=== PATIENT | male | born 1970 | race Caucasian/White ===

== ENCOUNTER 2017-02-20 19:24 | Emergency (ER) | payer SELFPAY ==
[~2017-02-20] VITALS: Ht 185.4 cm; Wt 113.3 kg
[2017-02-20 19:27] VITALS: Ht 185.4 cm; Wt 113.3 kg
--- OUTSIDE RECORDS SUMMARY | 2017-02-20 19:29 | XMS REPORT | Continuity of Care Document ---
Author Author [facility] Organization [facility] Address Unknown Phone Unavailable Allergies Medications Problems Procedures Results Encounters ACCT No. Visit Date/Time Discharge Status Pt. Type Provider Facility Loc./Unit Complaint [id number] 03/19/2014 17:10:46 03/19/2014 23: 59:59 CLS Outpatient Katerin Parada
--- NOTE | 2017-02-20 19:35 | NUR ---
PROVIDER DR JEFF AT BEDSIDE
[2017-02-20] MEDS: ADENOSINE 12mg/4ml INJECTION vl IV ONE (19:40)
--- NOTE | 2017-02-20 19:40 | NUR ---
ADEN[facility]INE CR[employer] [facility]ART AT BEDSIDE, DR JEFF AT BEDSIDE DURING MORTGAGE ADVISOR. O2 PLACED FOR PATIENT COMFORT.
--- OUTSIDE RECORDS SUMMARY | 2017-02-20 19:44 | XMS REPORT | Continuity of Care Document ---
Author Author [facility] Organization [facility] Address Unknown Phone Unavailable Allergies Medications Problems Procedures Results Encounters ACCT No. Visit Date/Time Discharge Status Pt. Type Provider Facility Loc./Unit Complaint [id number] 03/19/2014 17:10:46 03/19/2014 23: 59:59 CLS Outpatient Katerin Parada
--- NOTE | 2017-02-20 19:47 | ERPDOC ---
Departure Disposition Decision Date: February 20, 2017 Disposition Decision Time: 20:40 Disposition: 02 TO [facility] Impression Impression Impression: Primary Impression: Elevated troponin Additional Impression: PSVT (paroxysmal supraventricular tachycardia) Severity: Severe Condition: Improved Seen By: Physician only Problems/Meds/Labs Reviewed?: Yes Medications reviewed and manag: Yes Follow up care ordered?: Yes Mental Status: Alert Critical Care Note Total Time (mins): 45 Critical Care Spent: [id number] care of pt, Reviewing test results, Discuss the case w/staff, Documenting the MR, Discussion w/ family/DPOA During this visit the pt was: Critically Ill, At Risk of Deterioration HPI - Cardiac General Stated Complaint: HEART RACING Time Seen by Provider: 19:31 Source: patient Exam Limitations: no limitations HPI - Cardiac General Initial Comments Rapid pulse with heart pounding for several hours. Patient has a history of paroxysmal SVT, but takes no medications. Patient was had several episodes in the past, has undergone extensive cardiac UA showing, essentially with no answers. He was simply told that if the symptoms ever come back and he is not able to make them go away with Valsalva, he should go to the ER. Patient has recently moved into the area, has no executive coach, and no primary physician, and in fact has not seen a physician for several years. In terms began this afternoon between 2-4 pm, and did not go away with Valsalva or rest, so the patient came in for evaluation. Occurred At: home Onset/Timing: Rapid Duration: 4-6 hrs Severity: moderate, severe Nitro Today/Relief: no nitro taken today Aspirin Today: contraindicated Associated Symptoms: DENIES: chest pain, cough, diaphoresis, fever/chills, headaches, loss of appetite, malaise, nausea/vomiting, rash, seizure, shortness of breath, syncope, weakness Hx of Similar Symptoms: Yes Allergies: Coded Allergies: No Known Allergies (Unverified , 02/20/17) Past History Past Medical History Cardiac: PSVT GI: GERD Surgical History General: EGD Surgical History Comments Multiple spinal surgeries Social History Smoking Status: Never smoker Does patient use chewing tobac: No Second Hand Exposure: No Substance Use Type: does not use Alcohol Intake: none Record Review Pertinent history updated: Yes Review of Systems Constitutional Constitutional: DENIES: appetite decrease, appetite increase, chills, dizziness , fever, weakness ENMT Ears: DENIES: pain Hearing: DENIES: hearing loss, tinnitus Balance: DENIES: vertigo Mouth/Throat: DENIES: change in swallowing, change in voice, hoarsness, painful swallowing, sore throat Cardiovascular Cardiac: DENIES: chest pain, dyspnea on exertion Rhythm/Rate: palpitations, tachycardia, DENIES: irregular beat Vascular: DENIES: pedal edema Pulmonary Respiratory: DENIES: cough, dyspnea, pleuritic chest pain GI Upper Abdomen: DENIES: dysphagia, heartburn/indigestion, nausea, pain, vomiting Lower Abdomen: DENIES: blood in stool, constipation, diarrhea, pain General: DENIES: burning, dysuria, frequency, pain, urgency Musculoskeletal General: DENIES: cramps, joint pain, joint swelling, pain, weakness Integumentary Skin: DENIES: rash, sores Neurological General: DENIES: headache, numbness, tingling, vertigo, weakness Psychiatric Psychiatric: DENIES: anxiety, depression, nervousness Physical Exam General General Nourishment: well nourished, well developed, appears stated age, no acute distress General Body Habitus: well groomed Vitals and Pain First Documented Vital Signs Date Time Temp Pulse Resp B/P Pulse Ox O2 Delivery O2 Flow Rate FiO2 02/20/17 19:27 98.0 220 22 105/56 98 Room Air Weight: Kilograms: Height (feet): Height (inches): Triage Pain Scale: RN VS reviewed by Provider: Yes Normal Exams: Head: Normocephalic w/o trauma Eyes: Pupils are PERRLA w/ EOMI, No scleral icterus, irritation, or foreign bodies noted ENMT: No facial trauma, nasal exudates, pharyngeal erythema, or exudates are noted Neck: Full range of motion, without adenopathy, JVD, bruits or thyromegaly Chest/Resp: Clear all sosa, with good airflow, and symmetry bilaterally CV: no pedal edema noted Abdomen: Bowel sounds positive, soft, non-tender, non-distended, no hepatosplenomegaly, masses or bruits noted Lymphatic: No lymphadenopathy, or lymphedema noted Musculoskeletal: No tenderness, or deformity noted, good range of motion, all extremities Integumentary: No rashes, hives, or bruising noted, hair and nails, without abnormality Neurologic: Patient is alert, and oriented, cranial nerves, motor/sensory/ cerebellar, exams w/o gross deficits, to observation Psychiatric: Patient exhibits, appropriate attention, emotion and affect Cardiovascular (brief) Cardiac: FOUND: regular rate (regularly tachycardic, greater than 200), NOT FOUND: click, gallop, murmur, regular rhythm Capillary Refill: <2 sec Pulses: all distal extremities, equal, strong Progress Results/Orders Orders Procedure Category Date Status Time EKG EKG 02/20/17 Logged Troponin I W LAB 02/20/17 Complete Hemolysis Index Cbc W/Auto LAB 02/20/17 Complete Diff-Reflex Manual Cmp - Comprehensive LAB 02/20/17 Complete Metabolic Iv Lock (Ed Only) EDM 02/20/17 Transmitted 19:31 Adenosine (Adenocard) PHA 02/20/17 Complete 19:45 Lab Results Laboratory Tests Test 02/20/17 19:49 White Blood Count 10.4T/MM3 Red Blood Count 5.12M/MM3 Hemoglobin 15.2GM/DL Hematocrit 45.9% Mean Corpuscular Volume 89.6UM3 Mean Corpuscular Hemoglobin 29.7UUG Mean Corpuscular Hemoglobin Concent 33.1GM/DL RDW Standard Deviation 40.8FL Platelet Count 311T/MM3 Mean Platelet Volume 9.6UM3 Immature Granulocyte % (Auto) 0.4% Neutrophils (%) (Auto) 52.0% Lymphocytes (%) (Auto) 34.5% Monocytes (%) (Auto) 8.7% Eosinophils (%) (Auto) 3.7% Basophils (%) (Auto) 0.7% Absolute Immature Granulocyte (auto 0.04T/MM3 Absolute Neutrophils (auto) 5.4T/MM3 Absolute Lymphocytes (auto) 3.6T/MM3 Absolute Monocytes (auto) 0.9T/MM3 Absolute Eosinophils (auto) 0.4T/MM3 Absolute Basophils (auto) 0.1T/MM3 Turbidity < 20 Sodium Level 147MEQ/L Potassium Level 4.7MEQ/L Chloride Level 110MEQ/L Carbon Dioxide Level 24MEQ/L Anion Gap 13MEQ/L Blood Urea Nitrogen 21.0MG/DL Creatinine 1.3MG/DL Glomerular Filtration Rate Calc 60 BUN/Creatinine Ratio 16RATIO Glucose Level 100MG/DL Calculated Osmolality 285MOSM/KG Calcium Level 9.2MG/DL Total Bilirubin 0.70MG/DL Icterus Index < 2 Aspartate Amino Transf (AST/SGOT) 34U/L Alanine Aminotransferase (ALT/SGPT) 54U/L Alkaline Phosphatase 114U/L Troponin I 0.145ng/ml Total Protein 7.6G/DL Albumin 4.1G/DL Globulin 3.5G/DL Albumin/Globulin Ratio 1.2RATIO Chemistry Specimen Hemolysis 24 Medications Current ED Medications Adenosine (Adenocard) 18 mg O ONCE IV Last administered on 02/20/17t 19:40; Start 02/20/17 at 19:45; Stop 02/20/17 at 19:46; Status DC Progress Progress Patient given 6 mg adenosine IV push, urgent a sinus rhythm Initial EKG showed supra-ventricular tachycardia, second EKG after medications showed mild normal sinus at 97 bpm CBC - N CMP - N Troponin - elevated, 0.[address] Cole - Dr. Cole would like the patient transferred to the [facility] for elevated troponin status post PSVT. Patient is stable at this time, all testing and recommendations were discussed with the patient, and although he does not prefer admission, he is willing to go to [place] for ERIKA Aguila MD February 20, 2017 19:47
[2017-02-20 19:57] LABS: BASOPHILS # (AUTO) 0.1 T/MM3 (0-0.2); BASOPHILS % (AUTO) 0.7 % (0-2); EOSINOPHILS # (AUTO) 0.4 T/MM3 (0-0.5); EOSINOPHILS % (AUTO) 3.7 % (0-4); HCT - HEMATOCRIT 45.9 % (41-53); HGB - HEMOGLOBIN 15.2 GM/DL (13.5-17.5); IMMATURE GRANULOCYTE # (AUTO) 0.04 T/MM3 (0.00-0.03); IMMATURE GRANULOCYTE % (AUTO) 0.4 % (0.0-0.5); LYMPHOCYTES # (AUTO) 3.6 T/MM3 (1-4.8); LYMPHOCYTES % (AUTO) 34.5 % (23-45); MEAN CORPUSCULAR HGB 29.7 UUG (26-34); MEAN CORPUSCULAR HGB CONC(MCHC 33.1 GM/DL (31-37); MEAN CORPUSCULAR VOLUME 89.6 UM3 (80-100); MEAN PLATELET VOLUME 9.6 UM3 (9.4-12.4); MONOCYTES # (AUTO) 0.9 T/MM3 (0-0.8); MONOCYTES % (AUTO) 8.7 % (0-9.0); NEUTROPHILS #(AUTO)-ABSOLUTE 5.4 T/MM3 (1.8-7.7); RED BLOOD COUNT 5.12 M/MM3 (4.50-5.90); WBC - WHITE BLOOD COUNT 10.4 T/MM3 (4.5-11.0)
[2017-02-20 20:04] LABS: ALBUMIN 4.1 G/DL (3.5-5.0); ALBUMIN/GLOBULIN RATIO 1.2 RATIO (1.1-2.2); ALKALINE PHOSPHATASE 114 U/L (38-126); ALT (SGPT) 54 U/L (21-72); ANION GAP 13 MEQ/L (5-15); AST (SGOT) 34 U/L (17-59); BUN/CREATININE RATIO 16 RATIO (6-26); CALCIUM 9.2 MG/DL (8.4-10.2); CHLORIDE 110 MEQ/L (98-107); CO2 - CARBON DIOXIDE 24 MEQ/L (22-30); CREATININE 1.3 MG/DL (0.8-1.5); GLOMERULAR FILTRATION RATE 60; GLUCOSE 100 MG/DL (75-110); POTASSIUM 4.7 MEQ/L (3.6-5); SODIUM 147 MEQ/L (134-144); TOTAL PROTEIN 7.6 G/DL (6.3-8.2)
[2017-02-20] MEDS ORDERED: CHLO1TAB34 PO (20:09)
[2017-02-20] MEDS ORDERED: NO ROUTINE MEDS (20:09)
--- NOTE | 2017-02-20 20:35 | NUR ---
PROVIDER DR JEFF AT BEDSIDE TO DISCUSS RESULTS AND POC
--- NOTE | 2017-02-20 20:50 | NUR ---
REPORT ATTEMPTED TO CALL REPORT TO RN AT [facility], REQUESTED THAT WE CALLBACK IN 5-10 MINS
--- NOTE | 2017-02-20 21:04 | NUR ---
REPORT CALLED [facility] FOR REPORT, REQUEST FOR THIS RN NUMBER, NUMBER GIVEN FOR [facility] RN TO CALL REPORT, PER TOWING PILOT OK TO GO AHEAD AND CALL EMS.
--- NOTE | 2017-02-20 21:07 | NUR ---
[facility] CALL[facility]
--- NOTE | 2017-02-20 21:17 | NUR ---
REPORT REPORT GIVEN TO AIDA SKINNER AT [facility]
--- NOTE | 2017-02-20 21:23 | NUR ---
EMS REPORT REPORT GIVEN TO EMS
[2017-02-20 21:26] VITALS: BP 113/83; PULSE 92; RESP 19; TEMP 98; O2SAT 96
== END 2017-02-20 21:26 | disposition short-term general hospital (02) ==
LOC: ED 19:24
DX: I47.1 Supraventricular tachycardia (principal); R79.89 Other specified abnormal findings of blood chemistry
CPT/HCPCS: 36415; 80053; 84484; 85025; 93005